=== PATIENT | male | born 1940 | race Caucasian/White ===

== ENCOUNTER → 2020-01-04 07:55 | Outpatient (CLI) | payer MEDICARE, BC, SELFPAY ==
--- NOTE | 2020-01-04 08:20 | DI.ECHO.S_ITS ---
Echocardiogram Report + + :Name: CARLITOS SYKES Study Date: 01/04/2020 Height: 74 in : :[facility] Weight: 215 lb : : Gender: Male BSA: 2.2 m2 : :: 1940 Age: 79 yrs BP: 122/80 mmHg: :Reason For Study: PALPITATIONS : : Performed By: Vic Blandon : :Referring: FIDELIA MONTIEL : + + Interpretation Summary The left ventricle is normal in size. The ejection fraction is estimated to be 60-65%. The right ventricle is normal in size and function. There is mild to moderate aortic regurgitation. There is mild mitral regurgitation. There is mild tricuspid regurgitation. The right ventricular systolic pressure is estimated to be at least 32 mmHg based on an estimated right atrial pressure of 8 mm Hg. There is aortic root sclerosis/calcification. Mild atherosclerotic plaque(s) in the aortic arch. Procedure: A two-dimensional transthoracic echocardiogram with color flow and Doppler was performed. The study quality was technically good. There is no prior echocardiogram noted for this patient. The patient was in normal sinus rhythm during the exam. The patient had frequent PACs during the exam. Left Ventricle: The left ventricle is normal in size. There is normal left ventricular wall thickness. There is no thrombus. The ejection fraction is estimated to be 60-65%. There are no focal wall motion abnormalities. Diastolic parameters suggest a relaxation abnormality of the left ventricle, consistent with probable normal filling pressures. Right Ventricle: The right ventricle is normal in size and function. Atria: The left atrium is mildly dilated. Right atrial size is normal. The interatrial septum is intact with no evidence for an atrial septal defect. Mitral Valve: There is mild mitral annular calcification. The mitral valve leaflets are mildly calcified. There is mild mitral regurgitation. Aortic Valve: The aortic valve is trileaflet. The aortic valve opens well. The aortic valve is slightly calcified. There is mild to moderate aortic regurgitation. Tricuspid Valve: The tricuspid valve is normal. The right ventricular systolic pressure is estimated to be at least 32 mmHg based on an estimated right atrial pressure of 8 mm Hg. There is mild tricuspid regurgitation. Pulmonic Valve: The pulmonic valve is not well seen, but is grossly normal. There is mild pulmonic regurgitation. Great Vessels: The aortic root is normal size. There is aortic root sclerosis/calcification. The dimensions of the ascending aorta are normal. Mild atherosclerotic plaque(s) in the aortic arch. The pulmonary artery is normal size. The IVC is dilated (diameter is greater than 2.1 cm) yet it collapses greater than 50% with a sniff. This suggests a right atrial pressure of 8 mm Hg. Pericardium/ Pleura There is no pericardial effusion. There is an anterior echo-free space consistent with a fat pad. There is no pleural effusion. MMode/2D Measurements & Calculations LVIDd: 5.2 cm LVOT diam: 2.3 cm LVIDs: 2.9 cm Ao root diam: 3.8 cm FS: 44.4 % asc Aorta Diam: 3.3 cm EPSS: 0.55 cm Ao Arch Diam (Prox Trans): 3.0 cm IVSd: 0.92 cm LVPWd: 0.93 cm LV oliver. diameter/BSA (cm/m^2): 2.3 LV sys. diameter/BSA (cm/m^2): 1.3 LA dimension: 3.9 cm RA long axis: 5.8 cm LA A2 area: 25.2 cm2 RA area: 20.1 cm2 LA A4 area: 23.2 cm2 RA vol: 59.4 ml LA length (vol): 6.0 cm RA : 26.5 ml/m2 LA vol: 82.8 ml IVC diam: 2.3 cm LA vol index: 37.0 ml/m2 RVD1 (basal): 4.8 cm RVD2 (mid): 4.2 cm TAPSE: 2.5 cm Doppler Measurements & Calculations Ao V2 max: 135.0 cm/sec LVOT Max Gunnar: 116.2 cm/sec Ao V2 mean: 98.4 cm/sec LV V1 max P.5 mmHg Ao max P.4 mmHg LV V1 VTI: 28.4 cm Ao mean P.3 mmHg NATA(I,D): 3.7 cm2 Ao V2 VTI: 31.8 cm NATA(V,D): 3.6 cm2 sev ratio: 0.90 NATA indexed to BSA (cm^2/m^2): 1.7 AI P1/2t: 845.9 msec AI dec slope: 147.7 cm/sec2 MV E max gunnar: 40.7 cm/sec TR max gunnar: 246.2 cm/sec MV A max gunnar: 46.6 cm/sec TR max P.3 mmHg MV E/A: 0.87 PA V2 max: 99.2 cm/sec Med Peak E' Gunnar: 4.6 cm/sec PA V2 mean: 76.0 cm/sec E/E' med: 8.8 PA mean P.5 mmHg Lat Peak E' Gunnar: 5.6 cm/sec PA pr(Accel): 21.2 mmHg E/E' lat: 7.3 E/e' average: 8.0 MV dec time: 0.20 sec SV(OT): 118.1 ml Reading Physician:06:08 PM
== END ==
PROVIDERS: Family Provider Family Medicine; PCP Family Medicine; Referring Provider Family Medicine; Visit Provider Family Medicine
DX: I08.3 Combined rheumatic disorders of mitral, aortic and tricuspid valves (principal); R00.2 Palpitations; I70.0 Atherosclerosis of aorta
CPT/HCPCS: 93306

== ENCOUNTER → 2020-01-20 12:47 | Outpatient (CLI) | payer MEDICARE, BC, SELFPAY ==
--- NOTE | 2020-02-10 16:53 | PM.CARDMON.1 ---
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 Patient also with rare supraventricular tachycardia, without any significant runs of any duration. Clinical correlation suggested
== END ==
PROVIDERS: Family Provider Family Medicine; PCP Family Medicine; Referring Provider Family Medicine; Visit Provider Family Medicine
DX: R00.2 Palpitations (principal)
CPT/HCPCS: 0296T; 0298T

== ENCOUNTER → 2021-02-19 13:01 | Outpatient (CLI) | payer MEDICARE, BC, SELFPAY ==
--- NOTE | 2021-02-19 | DI.RAD.S_ITS ---
PROCEDURE: XR CHEST 2V INDICATIONS: CHEST PAIN TECHNIQUE: 2 views of the chest were acquired. COMPARISON: None. FINDINGS: Surgical changes and devices: None. Lungs and pleura: Lungs are clear. No pleural effusions or pneumothorax. Mediastinum: Mediastinal contours are normal. Heart size is normal. Atherosclerotic vascular calcification noted in the aortic arch. Bones and chest wall: No suspicious bony abnormalities. Soft tissues appear unremarkable. IMPRESSION: No acute cardiopulmonary findings Approved by: Marek Kingsley M.D. on 02/19/2021 at 13:50
== END ==
PROVIDERS: Family Provider Family Medicine; PCP Family Medicine; Referring Provider Family Medicine; Visit Provider Family Medicine
DX: R07.9 Chest pain, unspecified (principal)
CPT/HCPCS: 71046

== ENCOUNTER → 2022-12-16 07:53 | Outpatient (CLI) | payer MEDICARE, SELFPAY ==
--- NOTE | 2022-12-16 | DI.ECHO.S_ITS ---
[place] +---------+ Hospital +---------+ : : [address] : : : : [id number] : : : : Phone: [phone]+ Echocardiogram Report + + :Name: CARLITOS SYKES Study Date: 12/16/2022 Height: 72 in : :[facility] ReadingLocation: Weight: 207 lb : : Gender: Male BSA: 2.2 m2 : :: 1940 Age: 82 yrs BP: 133/73 mmHg: :Reason For Study: Nonrheumatic Mitral Valve Insufficiency : :Ordering Physician: Darrin, : :[place] Performed By: Marta Thurman : :Referring: Brooklyn Clifford : + + Interpretation Summary The left ventricle is normal in size. Left ventricular systolic function appears normal without focal wall motion abnormalities. The ejection fraction is estimated to be 60-65%. LVEF has not changed since prior study. Diastolic parameters suggest a relaxation abnormality of the left ventricle, consistent with probable normal filling pressures. The right ventricle is mildly dilated. The right ventricular systolic function is normal. The left atrial size is normal. Right atrial size is normal. There is mild mitral regurgitation. MR has not changed. There is mild aortic regurgitation. AR has slightly decreased since prior study. There is no other significant valvular heart disease. The aortic root is normal size. Procedure: A two-dimensional transthoracic echocardiogram with color flow and Doppler was performed. The study quality was technically adequate. Comparison is made with the echocardiogram of 01/04/2020. The patient was in sinus bradycardia with heart rates between 50 bpm during the exam. Left Ventricle: The left ventricle is normal in size. Left ventricular wall thickness is mildly increased. Left ventricular systolic function appears normal without focal wall motion abnormalities. The ejection fraction is estimated to be 60-65%. Diastolic parameters suggest a relaxation abnormality of the left ventricle, consistent with probable normal filling pressures. Right Ventricle: The right ventricle is mildly dilated. The right ventricular systolic function is normal. Atria: The left atrial size is normal. Right atrial size is normal. There is no Doppler evidence for an interatrial shunt. Mitral Valve: The mitral valve is normal. There is no mitral valve stenosis. There is mild mitral regurgitation. Aortic Valve: The aortic valve is trileaflet. The aortic valve opens well. There is no aortic valve stenosis. There is mild aortic regurgitation. Tricuspid Valve: The tricuspid valve is normal. There is no tricuspid stenosis. There is trace tricuspid regurgitation. Pulmonic Valve: The pulmonic valve leaflets are thin and pliable; valve motion is normal. There is no pulmonic valvular stenosis. There is trace pulmonic regurgitation. There is no other significant valvular heart disease. Great Vessels: The aortic root is normal size. The ascending aorta is normal in size. The pulmonary artery is normal size. The IVC is of normal diameter and collapses greater than 50% with a sniff. This suggests a low right atrial pressure of 3 mm Hg. Pericardium/ Pleura There is no pericardial effusion. There is no pleural effusion. MMode/2D Measurements & Calculations LVIDd: 4.4 cm LVOT diam: 1.9 cm LVIDs: 2.8 cm Ao root diam: 3.8 cm FS: 36.4 % asc Aorta Diam: 3.5 cm IVSd: 1.4 cm LVPWd: 1.3 cm LV oliver. diameter/BSA (cm/m^2): 2.0 LV sys. diameter/BSA (cm/m^2): 1.3 LA A2 area: 15.0 cm2 RA long axis: 6.0 cm LA A4 area: 17.8 cm2 RA area: 16.9 cm2 LA length (vol): 5.0 cm RA vol: 40.7 ml LA vol: 45.1 ml RA : 18.8 ml/m2 LA vol index: 20.9 ml/m2 RVD1 (basal): 4.6 cm LVLs ap4: 6.1 cm LVLd ap2: 7.2 cm TAPSE_phl: 1.6 cm LVLs ap2: 6.0 cm Doppler Measurements & Calculations Ao V2 max: 121.0 cm/sec LVOT Max Gunnar: 82.5 cm/sec Ao V2 mean: 93.0 cm/sec LV V1 max P.7 mmHg Ao max P.0 mmHg LV V1 VTI: 18.8 cm Ao mean P.0 mmHg NATA(I,D): 1.8 cm2 Ao V2 VTI: 30.1 cm NATA(V,D): 1.9 cm2 sev ratio: 0.62 NATA indexed to BSA (cm^2/m^2): 0.82 AI P1/2t: 679.4 msec AI dec slope: 184.5 cm/sec2 MV E max gunnar: 42.2 cm/sec TR max gunnar: 224.0 cm/sec MV A max gunnar: 60.0 cm/sec TR max P.1 mmHg MV E/A: 0.70 PA V2 max: 109.0 cm/sec Med Peak E' Gunnar: 5.3 cm/sec PA V2 mean: 73.3 cm/sec E/E' med: 7.9 PA mean P.0 mmHg Lat Peak E' Gunnar: 5.5 cm/sec PA pr(Accel): 16.0 mmHg E/E' lat: 7.7 E/e' average: 7.8 MV dec time: 0.26 sec SV(LVOT): 53.3 ml AV P1/2t-pr_phl: 707.0 msec AV VR_phl: 0.68 NATA(VTI)/BSA_phl: 0.82 Reading Physician:06:19 PM
== END ==
PROVIDERS: Family Provider Family Medicine; PCP Family Medicine; Referring Provider Family Medicine; Visit Provider Family Medicine
DX: I08.0 Rheumatic disorders of both mitral and aortic valves (principal); I95.9 Hypotension, unspecified
CPT/HCPCS: 93306

== ENCOUNTER → 2023-02-12 09:41 | Outpatient (CLI) | payer MEDICARE, BC, SELFPAY ==
[2023-02-12 10:00] LABS: Hematocrit 46.1 % (41-53); Hemoglobin 15.9 g/dL (13.5-17.5)
[2023-02-12 10:40] LABS: BUN Creatinine Ratio 18.5 (6-22); Blood Urea Nitrogen 34 mg/dL (9-20); Calcium 9.7 mg/dL (8.4-10.2); Carbon Dioxide 31 mmol/L (22-32); Chloride 100 mmol/L (98-107); Estimated Glomerular Filt Rate 37 mL/min (>60); Glucose 84 mg/dL (80-110); HEMOLYSIS < 15 (0-50); Potassium 3.8 mmol/L (3.4-5.1); Sodium 140 mmol/L (137-145)
[2023-02-12 11:48] LABS: Creatinine Urine Random 103.7 mg/dL
[2023-02-12 11:53] LABS: Microalbumi Creatinin Ratio Ur 5.7 ug/mg CR (<30); Microalbumin Urine Random 0.6 mg/dL (0-1.6)
== END ==
PROVIDERS: Family Provider Family Medicine; PCP Family Medicine; Referring Provider Internal Medicine Nephrology; Visit Provider Internal Medicine Nephrology
DX: I10 Essential (primary) hypertension (principal); N18.31 Chronic kidney disease, stage 3a
CPT/HCPCS: 36415; 80048; 82043; 82570; 85014; 85018

== ENCOUNTER → 2023-03-14 16:30 | Outpatient (CLI) | payer MEDICARE, BC, SELFPAY ==
--- NOTE | 2023-03-14 16:32 | DI.RAD.S_ITS ---
PROCEDURE: XR CERVICAL SPINE 2V OR 3V INDICATIONS: Neck pain TECHNIQUE: 3 view(s) of the cervical spine were acquired. COMPARISON: None. FINDINGS: Bones: No fractures or dislocations to the T1 level. 2-3 mm anterolisthesis at C4-5 and C5-6 levels are seen. Mild degenerative endplate changes and bilateral facet hypertrophic changes are noted throughout cervical spine. The lateral masses of C1 appear intact on the odontoid view. No suspicious bony lesions. Soft tissues: No prevertebral soft tissue swelling. 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 No acute fracture or dislocation. Minimal anterolisthesis at C4-5 and C5-6 levels. Dictated by: Ge Arreola M.D. on 03/14/2023 at 17:07 Approved by: Ge Arreola M.D. on 03/14/2023 at 17:07
== END ==
PROVIDERS: Family Provider Family Medicine; PCP Family Medicine; Referring Provider Family Medicine; Visit Provider Family Medicine
DX: M50.30 Other cervical disc degeneration, unspecified cervical region (principal)
CPT/HCPCS: 72040

== ENCOUNTER → 2023-08-02 11:54 | Outpatient (CLI) | payer MEDICARE, BC, SELFPAY ==
[2023-08-02 12:31] LABS: Hematocrit 48.7 % (41-53); Hemoglobin 16.7 g/dL (13.5-17.5)
[2023-08-02 12:57] LABS: BUN Creatinine Ratio 20.4 (6-22); Blood Urea Nitrogen 34 mg/dL (9-20); Calcium 10.1 mg/dL (8.4-10.2); Carbon Dioxide 30 mmol/L (22-32); Chloride 101 mmol/L (98-107); Estimated Glomerular Filt Rate 41 mL/min (>60); Glucose 86 mg/dL (80-110); HEMOLYSIS < 15 (0-50); Potassium 3.8 mmol/L (3.4-5.1); Sodium 140 mmol/L (137-145)
== END ==
LOC: LAB 11:56
PROVIDERS: Family Provider Family Medicine; PCP Family Medicine; Referring Provider Internal Medicine Nephrology; Visit Provider Internal Medicine Nephrology
DX: I10 Essential (primary) hypertension (principal); N18.31 Chronic kidney disease, stage 3a
CPT/HCPCS: 36415; 80048; 85014; 85018

== ENCOUNTER 2023-09-03 14:25 | Emergency (ER) | payer MEDICARE, BC, SELFPAY ==
[2023-09-03 14:27] VITALS: BP 140/66; PULSE 62; RESP 18; TEMP 37; O2SAT 98; BMI 28.5
--- NOTE | 2023-09-03 14:32 | DI.RAD.S_ITS ---
PROCEDURE: XR HAND RT MIN 3V INDICATIONS: fall/hurt two middle fingers TECHNIQUE: 3 views of the hand(s) acquired. COMPARISON: None. FINDINGS: Bones: No fractures or dislocations. Carpal bones are normally aligned. No suspicious bony lesions. Soft tissues: No suspicious soft tissue calcifications. IMPRESSION: No acute fracture. No osseous lesion. If symptoms and/or clinical suspicion for pathology persist, further assessment with repeat, or advanced imaging (e.g., CT, MRI, or bone scan) may be helpful for further assessment. Dictated by: Lola Knight M.D. on 09/03/2023 at 14:50 Approved by: Loal Knight M.D. on 09/03/2023 at 14:50
--- NOTE | 2023-09-03 18:42 | ED.UPPEXIN ---
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 He immediately felt pain and looked at his hand and noted that the ends of the right 3rd and 4th fingers were visibly disfigured. He immediately grabbed the fingers and straightened them. He then came to the emergency room for assessment. He did not hit his head or have a loss of consciousness with the fall. Related Data Allergies Allergy/AdvReac Type Severity Reaction Status Date / Time No Known Drug Allergies Allergy Verified 09/03/23 14:27 Review of Systems <Brooklyn Altamirano PA-C - Last Filed: 09/03/23 18:46> Review of Systems ROS Unobtainable: All systems reviewed & are unremarkable except as noted in HPI and below Patient History <Brooklyn Altamirano PA-C - Last Filed: 09/03/23 18:46> Social History Smoking Status: Never smoker Smoking Status: Never smoker Substance Use Type: does not use Exam <Brooklyn Altamirano PA-C - Last Filed: 09/03/23 18:46> Narrative Exam Narrative: GENERAL: 83 year old patient appears stated age. Well-developed patient, in no acute distress. NEURO: AOx3. HEAD: Atraumatic. Normocephalic. EYES: Pupils equal round and reactive. Extraocular motions intact. No scleral icterus. No injection or drainage. ENT: Nose without bleeding or purulent drainage. Airway patent. RESPIRATORY: No distress. EXTREMITIES: Trace edema and trace tenderness over the right 3rd and 4th PIP joints. No visible deformity. Circulation and sensation intact. Patient able to make a fist and fully flex and extend the fingers. SKIN: No rash or erythema of visible areas Initial Vital Signs Initial Vital Signs: Vital Signs Temperature 98.6 F 09/03/23 14:27 Pulse Rate 62 09/03/23 14:27 Respiratory Rate 18 09/03/23 14:27 Blood Pressure 140/66 09/03/23 14:27 Pulse Oximetry 98 09/03/23 14:27 Oxygen Delivery Method Room Air 09/03/23 14:27 <Siria Rivera DO - Last Filed: 09/04/23 07:55> Initial Vital Signs Initial Vital Signs: Vital Signs Temperature 98.6 F 09/03/23 14:27 Pulse Rate 62 09/03/23 14:27 Respiratory Rate 18 09/03/23 14:27 Blood Pressure 140/66 09/03/23 14:27 Pulse Oximetry 98 09/03/23 14:27 Oxygen Delivery Method Room Air 09/03/23 14:27 Course <Brooklyn Altamirano PA-C - Last Filed: 09/03/23 18:46> Orders Ordered: ED Orders 09/03/23 14:32 XR hand RT min 3V Stat Vital Signs Vital signs: Vital Signs - 8 hr 09/03/23 14:27 Temperature 98.6 F Pulse Rate 62 Respiratory Rate 18 Blood Pressure 140/66 Pulse Oximetry 98 Oxygen Delivery Method Room Air <Siria Rivera DO - Last Filed: 09/04/23 07:55> Orders Ordered: ED Orders 09/03/23 14:32 XR hand RT min 3V Stat Vital Signs Vital signs: Vital Signs - 8 hr 09/03/23 14:27 Temperature 98.6 F Pulse Rate 62 Respiratory Rate 18 Blood Pressure 140/66 Pulse Oximetry 98 Oxygen Delivery Method Room Air MDM - Extremity Injury (Upper) <Brooklyn Altamirano PA-C - Last Filed: 09/03/23 18:46> Imaging Data Extremity x-ray #1: Radiologist's Impression: PROCEDURE: XR HAND RT MIN 3V INDICATIONS: fall/hurt two middle fingers TECHNIQUE: 3 views of the hand(s) acquired. COMPARISON: None. FINDINGS: Bones: No fractures or dislocations. Carpal bones are normally aligned. No suspicious bony lesions. Soft tissues: No suspicious soft tissue calcifications. IMPRESSION: No acute fracture. No osseous lesion. If symptoms and/or clinical suspicion for pathology persist, further assessment with repeat, or advanced imaging (e.g., CT, MRI, or bone scan) may be helpful for further assessment. Dictated by: Lola Knight M.D. on 09/03/2023 at 14:50 Approved by: Lola Knight M.D. on 09/03/2023 at 14:50 [facility] Narrative Medical decision making narrative: Multiple etiologies for patient's symptoms considered including, but not limited to: Dislocation, fracture Patient with fracture of the right 3rd and 4th distal phalanges at the DIP joint per history. X-ray does not show any acute bony abnormality and the fingers look to be in good alignment. He has good motion sensation and circulation on exam. Encouraged patient to continue using ice over the next 48 hours to decrease pain and swelling. Offered the option to dayana tape the fingers to provide support but patient declines. Patient's symptoms improved over duration of stay with above-stated therapies. Findings and discharge diagnosis discussed with patient/family followed by verbalization of understanding Return precautions discussed with patient/family whom verbalize understanding of diagnosis and plan Discharge Plan Departure Patient Disposition: Home Clinical Impression: Dislocation, fingers Qualifiers: Encounter type: initial encounter Qualified Code(s): S63.259A - Unspecified dislocation of unspecified finger, initial encounter Instructions: DI for Finger Dislocation Activity Restrictions/Additional Instructions: * good news! ! You fixed your problem! it sounds like you had 2 dislocated fingers which you appropriately relocated and there is no evidence of fracture or misalignment on your x-ray. You probably will be sore over the next several days and may noticed some swelling around those joints. You can continue to use ice and take NSAIDs or Tylenol for pain. Those joints maybe a little more loose than normal and are at a higher risk of dislocating again in the right side of circumstances, although I doubt this will happen to. *What to do: *Please continue to take your regular medications as directed. [ ] New medication prescriptions sent to your pharmacy: [ ] [ ] New medication written as a paper prescription [x] No new medications given *Please follow up with your primary care provider in 2-3 days, call for an appointment. Let them know you were seen in the Emergency Department and that we ask that you be seen in follow up. We will electronically transmit a record of today's note if your PCP is in our system *If you do not have a primary care provider please contact the [facility] Resource line at [phone]. They will ask some questions about your medical history and help get you set up with a doctor in the community. *Return to Emergency Department if you should have any new, worsening or concerning symptoms, such as [fever greater than 101 F, shaking chills, worsening pain, persistent vomiting or other concerning symptoms]. Referrals: Brooklyn Clifford MD [Primary Care Provider] - Stand Alone Forms: Patient Portal/API ED Sign-out <Siria Rivera DO - Last Filed: 09/04/23 07:55> Cosign ED Attending Cosignature Attestation: I was available for consultation.
== END 2023-09-03 16:04 | disposition home or self-care (01) ==
PROVIDERS: Emergency Provider Physician Assistant; Family Provider Family Medicine; PCP Family Medicine
DX: S63.252A Unspecified dislocation of right middle finger, initial encounter (principal); S63.254A Unspecified dislocation of right ring finger, initial encounter; W01.0XXA Fall on same level from slipping, tripping and stumbling without subsequent striking against object, initial encounter; Y93.89 Activity, other specified
CPT/HCPCS: 73130; 99283

== ENCOUNTER → 2023-12-19 09:33 | Outpatient (CLI) | payer MEDICARE, BC, SELFPAY ==
--- NOTE | 2023-12-19 09:36 | DI.RAD.S_ITS ---
PROCEDURE: XR HAND RT MIN 3V INDICATIONS: Pain in right hand TECHNIQUE: 3 views of the hand(s) acquired. COMPARISON: [facility], CR, XR HAND RT MIN 3V, 09/03/2023, 14:37. FINDINGS: Bones: No fractures or dislocations. Carpal bones are normally aligned. No suspicious bony lesions. Interphalangeal joint space narrowing with osteophytosis. Soft tissues: No suspicious soft tissue calcifications. IMPRESSION: Moderate interphalangeal osteoarthritis. Dictated by: Carlitos Edge M.D. on 12/19/2023 at 10:31 Approved by: Carlitos Edge M.D. on 12/19/2023 at 10:32
== END ==
PROVIDERS: Family Provider Family Medicine; PCP Family Medicine; Referring Provider Family Medicine; Visit Provider Family Medicine
DX: M19.041 Primary osteoarthritis, right hand (principal); M79.641 Pain in right hand
CPT/HCPCS: 73130

== ENCOUNTER 2023-12-22 14:00 | Emergency (ER) | payer MEDICARE, BC, SELFPAY ==
[2023-12-22 14:05] VITALS: BP 142/78; PULSE 60; RESP 16; TEMP 36.4; O2SAT 94; BMI 28.2
--- NOTE | 2023-12-22 14:13 | DI.RAD.S_ITS ---
PROCEDURE: XR SHOULDER LT MIN 2V INDICATIONS: fall/pain TECHNIQUE: Three views of the shoulder were acquired. COMPARISON: None. FINDINGS: Bones: There is an inferiorly displaced and impacted midshaft left clavicle fracture. No AC joint separation. There is overriding of fracture fragments by about 1.9 cm. No other fractures are seen. Soft tissues: No suspicious soft tissue calcifications. No left pneumothorax. Mild left basal atelectasis. IMPRESSION: Midshaft clavicle fracture with impaction and displacement. Left lung atelectasis. Dictated by: Brielle Walter M.D. on 12/22/2023 at 15:36 Approved by: Brielle Waltre M.D. on 12/22/2023 at 15:37
--- NOTE | 2023-12-22 14:14 | DI.RAD.S_ITS ---
PROCEDURE: XR RIBS LT MIN 3V W CXR1V INDICATIONS: fall/pain TECHNIQUE: Three 2 views of the ribs were acquired, along with a single view chest. COMPARISON: None. FINDINGS: Surgical changes and devices: None. Bones and chest wall: Midshaft left clavicle fracture. There is minor angulation of the lateral 8th and anterolateral 7th ribs. No displaced fractures. No subcutaneous emphysema. Lungs and pleura: No pleural effusions or pneumothorax. Minor left lateral lung base atelectasis. Mediastinum: Mediastinal contours appear normal. Heart size is normal. IMPRESSION: Possible nondisplaced left 7th and 8th rib fractures. Left midshaft clavicle fracture. No evidence of left pneumothorax. Minor left base atelectasis, presumed from splinting. Dictated by: Brielle Walter M.D. on 12/22/2023 at 15:38 Approved by: Brielle Walter M.D. on 12/22/2023 at 15:40
[2023-12-22] MEDS: OXYCODONE/ACETAMINOPHEN 5/325 TABLET 1 TAB PO (16:31)
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
== END 2023-12-22 16:38 | disposition home or self-care (01) ==
PROVIDERS: Emergency Provider Student in an Organized Health Care Education/Training Program; Family Provider Family Medicine; PCP Family Medicine
DX: S42.022A Displaced fracture of shaft of left clavicle, initial encounter for closed fracture (principal); S22.42XA Multiple fractures of ribs, left side, initial encounter for closed fracture; V18.0XXA Pedal cycle driver injured in noncollision transport accident in nontraffic accident, initial encounter
CPT/HCPCS: 71101; 73030; 99283

== ENCOUNTER → 2024-02-19 12:37 | Outpatient (CLI) | payer MEDICARE, BC, SELFPAY ==
[2024-02-19 14:09] LABS: Hematocrit 45.5 % (41-53); Hemoglobin 15.5 g/dL (13.5-17.5)
[2024-02-19 15:19] LABS: Albumin 4.3 g/dL (3.5-5.0); BUN Creatinine Ratio 20.1 (6-22); Blood Urea Nitrogen 34 mg/dL (9-20); Calcium 9.6 mg/dL (8.4-10.2); Carbon Dioxide 29 mmol/L (22-32); Chloride 104 mmol/L (98-107); Estimated Glomerular Filt Rate 40 mL/min (>60); Glucose 114 mg/dL (80-110); HEMOLYSIS < 15 (0-50); Potassium 3.9 mmol/L (3.4-5.1); Sodium 140 mmol/L (137-145)
[2024-02-19 15:45] LABS: Microalbumin Urine Random 0.8 mg/dL (0-1.6)
[2024-02-19 15:53] LABS: Creatinine Urine Random 131.19 mg/dL
== END ==
PROVIDERS: Family Provider Family Medicine; PCP Family Medicine; Referring Provider Internal Medicine Nephrology; Visit Provider Internal Medicine Nephrology
DX: I10 Essential (primary) hypertension (principal); N18.31 Chronic kidney disease, stage 3a; D64.9 Anemia, unspecified
CPT/HCPCS: 36415; 80048; 82040; 82043; 82570; 85014; 85018

== ENCOUNTER → 2024-04-08 12:25 | Outpatient (CLI) | payer MEDICARE, BC, SELFPAY ==
--- NOTE | 2024-04-08 12:27 | DI.ECHO.S_ITS ---
[facility]+ [facility] : : [address] : [place] : : [id number] : : Phone: [phone] Echocardiogram Report + + :Name: CARLITOS SYKES Study Date: 04/08/2024 Height: 72 in : :Hospital ReadingLocation: Weight: 208 lb : : Gender: Male BSA: 2.2 m2 : :: 1940 Age: 84 yrs BP: 132/78 mmHg: :Reason For Study: PALPITATIONS, TACHYCARDIA, PRIMARY : :HYPERTENSION : :Ordering Physician: TIANA, : :FIDELIA Performed By: Eulogio Petersen : :Referring: FIDELIA MONTIEL : + + Interpretation Summary The patient was in sinus bradycardia with heart rates between 47-55 bpm during the exam. The left ventricle is normal in size. The left ventricular ejection fraction is normal. The ejection fraction is estimated to be 60-65%. No significant change in LVEF from the previous study. The right ventricle is mildly dilated. The right ventricular systolic function is normal. Mild MR. No significant change. There is mild to moderate aortic regurgitation. Compared to the prior echo study, there has been an increase in the severity of aortic regurgitation. There is mild tricuspid regurgitation. Mild atherosclerotic plaque(s) in the aortic arch. Procedure: A two-dimensional transthoracic echocardiogram with color flow and Doppler was performed. The study quality was technically good. Comparison is made with the echocardiogram of 12/16/2022. The patient was in sinus bradycardia with heart rates between 47-55 bpm during the exam. Left Ventricle: The left ventricle is normal in size. There is normal left ventricular wall thickness. There is no thrombus. The ejection fraction is estimated to be 60-65%. The left ventricular ejection fraction is normal. There are no focal wall motion abnormalities. Diastolic parameters suggest a relaxation abnormality of the left ventricle, consistent with probable normal filling pressures. Right Ventricle: The right ventricle is mildly dilated. The right ventricular systolic function is normal. Atria: The left atrium is mildly dilated. The left atrium has mildly increased in size since the prior echo exam. The right atrium is mildly dilated. The interatrial septum grossly appears intact with no obvious evidence for an atrial septal defect. Mitral Valve: There is mild mitral annular calcification. There is mild mitral regurgitation. There has been no significant change since the previous study. Aortic Valve: The aortic valve is trileaflet. The aortic valve opens well. There is mild to moderate aortic regurgitation. Compared to the prior echo study, there has been an increase in the severity of aortic regurgitation. Tricuspid Valve: The tricuspid valve is normal. There is mild tricuspid regurgitation. Pulmonary artery pressures cannot be estimated because of the lack of a measurable TR jet velocity. Pulmonic Valve: The pulmonic valve is normal in structure and function. There is trace pulmonic regurgitation. Great Vessels: The aortic root is normal size. The dimensions of the ascending aorta are normal. Mild atherosclerotic plaque(s) in the aortic arch. The pulmonary artery is normal size. The inferior vena cava was not visualized. Pericardium/ Pleura There is no pericardial effusion. There is no pleural effusion. MMode/2D Measurements & Calculations LVIDd: 5.5 cm LVOT diam: 2.1 cm LVIDs: 3.5 cm Ao root diam: 3.8 cm FS: 35.6 % asc Aorta Diam: 3.4 cm EPSS: 0.63 cm Ao Arch Diam (Prox Trans): 2.7 cm IVSd: 0.96 cm LVPWd: 0.90 cm LV oliver. diameter/BSA (cm/m^2): 2.5 LV sys. diameter/BSA (cm/m^2): 1.6 LA A2 area: 21.6 cm2 RA long axis: 6.3 cm LA A4 area: 25.2 cm2 RA area: 18.5 cm2 LA length (vol): 5.8 cm RA vol: 46.3 ml LA vol: 79.0 ml RA : 21.4 ml/m2 LA vol index: 36.5 ml/m2 RVD1 (basal): 4.3 cm RVD2 (mid): 3.5 cm TAPSE: 2.4 cm Doppler Measurements & Calculations Ao V2 max: 123.2 cm/sec LVOT Max Gunnar: 87.6 cm/sec Ao V2 mean: 91.0 cm/sec LV V1 max P.1 mmHg Ao max P.1 mmHg LV V1 VTI: 23.6 cm Ao mean P.6 mmHg NATA(I,D): 3.0 cm2 Ao V2 VTI: 28.4 cm NATA(V,D): 2.5 cm2 sev ratio: 0.83 NATA indexed to BSA (cm^2/m^2): 1.4 AI P1/2t: 761.2 msec AI dec slope: 193.3 cm/sec2 MV E max gunnar: 44.3 cm/sec TR max gunnar: 262.0 cm/sec MV A max gunnar: 58.5 cm/sec TR max P.5 mmHg MV E/A: 0.76 PA V2 max: 75.5 cm/sec Med Peak E' Gunnar: 3.7 cm/sec PA V2 mean: 47.8 cm/sec E/E' med: 12.1 PA mean P.1 mmHg Lat Peak E' Gunnar: 5.8 cm/sec PA pr(Accel): 37.9 mmHg E/E' lat: 7.6 E/e' average: 9.9 MV dec time: 0.20 sec SV(LVOT): 83.8 ml Reading Physician:04:33 PM
== END ==
PROVIDERS: Family Provider Family Medicine; PCP Family Medicine; Referring Provider Family Medicine; Visit Provider Family Medicine
DX: R00.2 Palpitations (principal); R00.0 Tachycardia, unspecified; I10 Essential (primary) hypertension; I08.3 Combined rheumatic disorders of mitral, aortic and tricuspid valves
CPT/HCPCS: 93306

== ENCOUNTER 2024-06-06 15:39 | Day surgery (SDC) | payer MEDICARE, BC, SELFPAY ==
[2024-06-06] VITALS (17 sets, daily range): BP systolic 105–134; BP diastolic 47–74; PULSE 73–94; RESP 11–29; TEMP 36.5–37; O2SAT 78–98; BMI 28.7
--- NOTE | 2024-06-06 15:47 | DI.RAD.S_ITS ---
PROCEDURE: XR CHEST 1V INDICATIONS: chest pain TECHNIQUE: One view of the chest was acquired. COMPARISON: [facility], CR, XR CHEST 2V, 02/19/2021, 13:01. [facility], CR, XR CLAVICLE LEFT, 01/01/2024, 10:22. [facility], CR, XR CLAVICLE LEFT, 01/27/2024, 13:40. [facility], CR, XR CLAVICLE LEFT, 03/09/2024, 12:53. FINDINGS: Surgical changes and devices: None. Lungs and pleura: On this semiupright portable chest examination, no large pneumothorax or large pleural effusions are seen. No focal infiltrates are seen. Low lung volumes are noted. This causes a crowded appearance to the lung markings and limits evaluation. Mediastinum: The cardiac contours are within normal limits. The aorta demonstrates calcification and tortuosity. Bones and chest wall: No suspicious bony lesions. There is a healing left clavicle fracture. Age-appropriate bony degenerative changes are seen. Overlying soft tissues appear unremarkable. IMPRESSION: Low lung volumes, without an acute abnormality seen by plain film. Healing left clavicle fracture. Dictated by: Rock Craig M.D. on 06/06/2024 at 15:14 Approved by: Rock Craig M.D. on 06/06/2024 at 15:14
--- NOTE | 2024-06-06 15:56 | EKG_ITS ---
[facility] [address] [place] [address] Test Date: 2024-06-06 Pat Name: [facility] Department: [facility] Room: Gender: Male Captain Room Service: SABINA : 1940 Requested By: Order Number: [id number] Reading MD: Israel Main Measurements Intervals [place] Rate: 77 P: 27 SC: 144 QRS: 31 QRSD: 84 T: 18 QT: 372 QTc: 420 Interpretive Statements Normal sinus rhythm Nonspecific ST and T wave abnormality Electronically Signed On 06-07-2024 7:55:07 PST by Israel Main
[2024-06-06] MEDS: ASPIRIN 81 MG CHEW TAB 324 MG PO (16:07)
[2024-06-06 16:09] LABS: Add Manual Diff / Slide Review NO; Basophils Absolute Auto 0 /uL (0-100); Eosinophils Absolute Auto 0 /uL (0-450); Eosinophils Percent Auto 0.2 % (2-4); Hematocrit 50.6 % (41-53); Lymphocytes Absolute Auto 900 /uL (1100-4500); Lymphocytes Percent Auto 9.3 % (25-40); Mean Corpuscular HGB Conc 33.7 % (30-36); Mean Corpuscular Hemoglobin 31.9 PG (26-34); Mean Corpuscular Volume 94.8 fL (80-100); Monocytes Absolute Auto 100 /uL (0-900); Monocytes Percent Auto 0.6 % (3-14); Neutrophils Absolute Auto 9100 /uL (1500-7000); Neutrophils Percent Auto 89.9 % (50-75); Platelet Count 158 X10^3/uL (150-400); Red Blood Cell Count 5.33 X10^6/uL (4.5-5.9); Red Cell Distribution Width 13.3 % (11.6-14.8); White Blood Cell Count 10.1 X10^3/uL (4.5-11.0)
[2024-06-06 16:15] LABS: INR 1.1 (0.9-1.3); Prothrombin Time 12.9 SECONDS (9.4-12.5)
--- NOTE | 2024-06-06 16:15 | DI.CT.S_ITS ---
PROCEDURE: CT ABDOMEN PELVIS W CON INDICATIONS: acute abdominal pain with distention TECHNIQUE: After the administration of intravenous contrast, axial sections acquired from the lung bases to the pubic symphysis. Coronal and sagittal reformats were performed. For radiation dose reduction, the following was used: automated exposure control, adjustment of mA and/or kV according to patient size. COMPARISON: [facility], CR, XR CHEST 1V, 06/06/2024, 15:51. FINDINGS: Image quality: Diagnostic. Lower Chest: No significant findings. ABDOMEN: Liver: No solid mass. Gallbladder: No radiopaque gallstones or wall thickening. Biliary ducts: No biliary dilation. Pancreas: No ductal dilation. Spleen: Size is within normal limits. Adrenal Glands: No adrenal nodules. Kidneys and Ureters: No hydronephrosis. No solid mass. No complex renal cystic lesion which requires follow up. Stomach and Bowel: The stomach is moderately distended with fluid. There is mild wall thickening seen involving the duodenum. The more distal small bowel is unremarkable. No dilated loops of small bowel are seen. Normal colonic caliber, without significant wall thickening. Colonic diverticulosis is seen, without findings of active diverticulitis. A normal appendix is noted. Peritoneum: No abnormal intraperitoneal fluid. No free air. Ventral Wall: No significant ventral hernia. Abdominal Nodes: No retroperitoneal or mesenteric adenopathy by size criteria. Vessels: Aorta and inferior vena cava are normal in size. PELVIS: Pelvic Organs: Unremarkable. Bladder: No bladder wall thickening, accounting for underdistention. Pelvic Nodes: No enlarged lymph nodes. Miscellaneous: Bilateral fat containing inguinal hernias are seen. Bones: No aggressive osseous abnormality. Age-appropriate bony degenerative changes are seen. IMPRESSION: The stomach is moderately distended with fluid and there is wall thickening seen involving the proximal duodenum. The more distal small bowel is within normal limits. Additional findings: Diverticulosis, without active diverticulitis Normal appendix Bilateral fat containing inguinal hernias Dictated by: Rock Craig M.D. on 06/06/2024 at 16:08 Approved by: Rock Craig M.D. on 06/06/2024 at 16:11
--- NOTE | 2024-06-06 16:16 | PC.NURSE ---
Pt is c/o shortness of breath
[2024-06-06 16:17] LABS: PTT Partial Thromboplastin Tim 32 SECONDS (25.1-36.5)
[2024-06-06 16:19] LABS: Alanine Aminotransferase 241 IU/L (<50); Albumin 4.4 g/dL (3.5-5.0); Albumin Globulin Ratio 1.4 (1.0-2.8); Alkaline Phosphatase 128 U/L (38-126); Aspartate Aminotransferase 449 IU/L (17-59); BUN Creatinine Ratio 15.9 (6-22); Bilirubin Total 2.7 mg/dL (0.2-1.3); Blood Urea Nitrogen 30 mg/dL (9-20); Calcium 9.5 mg/dL (8.4-10.2); Carbon Dioxide 31 mmol/L (22-32); Chloride 101 mmol/L (98-107); Creatine Kinase 106 U/L (55-170); Estimated Glomerular Filt Rate 35 mL/min (>60); Globulin 3.1 g/dL (1.7-4.1); Glucose 152 mg/dL (80-110); Lipase 172 U/L (23-300); Magnesium 1.6 mg/dL (1.6-2.3); Potassium 3.7 mmol/L (3.4-5.1); Sodium 140 mmol/L (137-145); Total Protein 7.5 g/dL (6.3-8.2)
[2024-06-06] MEDS: ONDANSETRON 4 MG/2 ML INJ IV (16:21)
[2024-06-06] MEDS: HYDROMORPHONE 0.5 MG INJ IV (16:22)
[2024-06-06 16:28] LABS: HEMOLYSIS < 15 (0-50); NT-proBNP (BNP-Adult 18+) 287 pg/mL (<450)
[2024-06-06 16:29] LABS: Lactate (Lactic Acid) 2.4 mmol/L (0.7-2.1)
[2024-06-06 16:30] LABS: Troponin I < 0.012 ng/mL (0.01-0.034)
--- NOTE | 2024-06-06 17:44 | PC.NURSE ---
Patient was off oxygen for about 30 minutes. Patient oxygen saturation just reported at 88% on RA. Pt placed back on 2L via NC and comes up to 94% on 2L. Provider made aware.
[2024-06-06 17:58] LABS: Reflexed Lactate in 2 Hours Y
--- NOTE | 2024-06-06 18:09 | ED_ITS ---
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 No vomiting, he has had a bowel movement does not feel that he is particularly distended. Pain is increasing to the point that he is splinting causing oxygen desaturation. He reports no fevers or chills. No recent chest pain, palpitations, lower extremity edema. Related Data Allergies Allergy/AdvReac Type Severity Reaction Status Date / Time No Known Drug Allergies Allergy Verified 09/03/23 14:27 Review of Systems Review of Systems Narrative: Pertinent positive and negative findings as per HPI Patient History Medical History (Updated 06/06/24 @ 18:45 by Helen Lauren MD) Asthma Social History Smoking Status: Never smoker Smoking Status: Never smoker Substance Use Type: does not use Exam Initial Vital Signs Initial Vital Signs: Vital Signs Temperature 98.2 F 06/06/24 15:42 Pulse Rate 85 06/06/24 15:42 Respiratory Rate 22 06/06/24 15:42 Blood Pressure 112/60 06/06/24 15:42 Pulse Oximetry 97 06/06/24 15:42 Oxygen Delivery Method Room Air 06/06/24 15:42 General: Somewhat pale, no diaphoresis, appears quite uncomfortable complaining of bandlike abdominal pain but Able to give a complete and coherent history. Well-nourished well-developed HEENT: Moist mucous membranes, normal sclera with reactive pupils, Neck: No JVD, supple Respiratory: Lungs are clear to auscultation, no wheezing no rales no rhonchi. Full and symmetrical air movement Cardiac: Regular rate and rhythm no murmurs no bruits Abdomen: Distended, tympanitic, no rebound or guarding not particularly tender to palpation Skin: Slightly pale but otherwise Warm and dry, no rashes Neurologic: Grossly neurologically intact with no obvious asymmetries or abnormalities Extremities: No trauma, well perfused Psych: Cooperative, appropriate insight and affect Course Orders Ordered: ED Orders 06/06/24 15:47 XR chest 1V Stat EKG-12 Lead Stat 06/06/24 15:55 Complete Blood Count AUTO DIFF Stat Comprehensive Metabolic Panel Stat Lactate (Lactic Acid) Stat Lipase Stat Magnesium Stat NT-proBNP (BNP-Adult 18+) Stat PTT Partial Thromboplastin [place] Stat Prothrombin Time INR Stat Troponin & CK Cardiac Panel Stat 06/06/24 16:15 CT abdomen pelvis w con Stat Hydromorphone HCl (Hydromorphone 0.5 Mg Inj) 0.5 mg IV Q15MIN PRN PRN Reason: Pain, Last Admin: 06/06/24 16:22 Dose: 0.5 mg Documented By: LASHAE Discontinued Medications Albuterol (Albuterol 2.5 Mg/3 Ml Neb (Adult)) 2.5 mg INH NOW ONE Stop: 06/06/24 16:18 Aspirin (Aspirin 81 Mg Chew Tab) 324 mg PO NOW ONE Stop: 06/06/24 15:48 Last Admin: 06/06/24 16:07 Dose: 324 mg Documented By: LASHAE Ondansetron HCl (Ondansetron 4 Mg/2 Ml Inj) 4 mg IV NOW ONE Stop: 06/06/24 16:16 Last Admin: 06/06/24 16:21 Dose: 4 mg Documented By: LASHAE Vital Signs Vital signs: Vital Signs - 8 hr 06/06/24 15:42 06/06/24 15:51 06/06/24 16:06 Temperature 98.2 F Pulse Rate 85 86 74 Respiratory Rate 22 29 H 22 Blood Pressure 112/60 Pulse Oximetry 97 78 L 96 Oxygen Delivery Method Room Air Room Air Oxygen Flow Rate 06/06/24 16:06 06/06/24 16:26 06/06/24 16:30 Temperature Pulse Rate 94 H 77 Respiratory Rate 20 14 Blood Pressure 128/60 Pulse Oximetry 95 88 L Oxygen Delivery Method Room Air Oxygen Flow Rate 06/06/24 16:30 06/06/24 16:48 06/06/24 16:48 Temperature Pulse Rate 82 Respiratory Rate 18 Blood Pressure 116/54 L 134/60 Pulse Oximetry 98 Oxygen Delivery Method Nasal Cannula Oxygen Flow Rate 2 06/06/24 17:00 06/06/24 17:00 06/06/24 17:30 Temperature Pulse Rate 77 75 Respiratory Rate 25 H Blood Pressure 122/59 L Pulse Oximetry 93 91 Oxygen Delivery Method Room Air Room Air Oxygen Flow Rate 06/06/24 17:30 06/06/24 17:45 Temperature Pulse Rate Respiratory Rate 12 Blood Pressure 107/55 L Pulse Oximetry 94 Oxygen Delivery Method Nasal Cannula Oxygen Flow Rate 2 MDM - Chest Pain Lab Data 06/06/24 15:55 06/06/24 15:55 Labs: Lab Results 06/06/24 Range/Units 15:55 WBC 10.1 (4.5-11.0) X10^3/uL RBC 5.33 (4.5-5.9) X10^6/uL Hgb 17.0 (13.5-17.5) g/dL Hct 50.6 (41-53) % MCV 94.8 (80-100) fL MCH 31.9 (26-34) PG MCHC 33.7 (30-36) % RDW 13.3 (11.6-14.8) % Plt Count 158 (150-400) X10^3/uL Neut % (Auto) 89.9 H (50-75) % Lymph % (Auto) 9.3 L (25-40) % [place] % (Auto) 0.6 L (3-14) % Eos % (Auto) 0.2 L (2-4) % Baso % (Auto) 0.0 (0-2) % Neut # (Auto) 9100 H (7104-7333) /uL Lymph # (Auto) 900 L (3960-6493) /uL [place] # (Auto) 100 (0-900) /uL Eos # (Auto) 0 (0-450) /uL Baso # (Auto) 0 (0-100) /uL PT 12.9 H (9.4-12.5) SECONDS INR 1.1 (0.9-1.3) APTT 32 (25.1-36.5) SECONDS Sodium 140 (137-145) mmol/L Potassium 3.7 (3.4-5.1) mmol/L Chloride 101 (98-107) mmol/L Carbon Dioxide 31 (22-32) mmol/L BUN 30 H (9-20) mg/dL Creatinine 1.89 H (0.66-1.25) mg/dL Estimated GFR 35 L (>60) mL/min BUN/Creatinine Ratio 15.9 (6-22) Glucose 152 H (80-110) mg/dL Lactate 2.4 H (0.7-2.1) mmol/L Calcium 9.5 (8.4-10.2) mg/dL Magnesium 1.6 (1.6-2.3) mg/dL Total Bilirubin 2.7 H (0.2-1.3) mg/dL AST 449 H (17-59) IU/L ALT 241 H (<50) IU/L Alkaline Phosphatase 128 H (38-126) U/L Total Creatine Kinase 106 (55-170) U/L Troponin I < 0.012 (0.01-0.034) ng/mL NT-Pro-B Natriuret Pep 287 (<450) pg/mL Total Protein 7.5 (6.3-8.2) g/dL Albumin 4.4 (3.5-5.0) g/dL Globulin 3.1 (1.7-4.1) g/dL Albumin/Globulin Ratio 1.4 (1.0-2.8) Lipase 172 (23-300) U/L MDM Narrative Medical decision making narrative: CC: Acute shortness of breath right-sided chest and bandlike abdominal pain since noon today Complicating co-morbidities: History of asthma Data collected from: patient Differential considered: Bowel obstruction, pancreatitis, pancreatic mass, gallbladder disease, pneumothorax Exam documented above, pertinent findings include: Patient appears uncomfortable, splinting secondary to pain, distended abdomen without rebound or guarding Lab Test results independently reviewed as above. Pertinent findings: CBC is reassuring with white count at 10 no anemia normal platelets Chemistries are notable for chronic kidney disease with creatinine at 1.89 elevated lactate at 2.4, bilirubin of 2.7 AST of 449 ALT of 241 alk-phos of 128. Troponin is not elevated Lipase is normal Independently reviewed EKG: Sinus rhythm at a rate of [address] changes. Imaging studies independently reviewed: Chest x-ray is unremarkable no significant cardiomegaly, no pneumothorax CT of the abdomen and pelvis shows distended stomach with mild wall thickening seen involving the duodenum distal small bowel is unremarkable. Liver has no masses, there are no gallstones, no dilated biliary ducts no pancreatic abnormalities or pancreatic ductal dilatation Consultations: Dr Haas, surgery He is in the department at 6:45 p.m. to further evaluate the patient Treatments: [place] Re-evaluations: hypoxia noted. Likely a component of splinting due to pain and narcotics. Responding to 2 L NC oxygen. no wheeze Discussion: 84-year-old gentleman with acute onset bandlike abdominal pain starting at 12:30 p.m. today. After the pain started he did lunch. He relates this to some abdominal exercises that he did at the gym yesterday as he had similar symptoms 24 hours after same exercises back in March. Findings are notable for significantly distended stomach, some swelling in the duodenum, no obvious biliary pancreatic dilatation no obvious cholecystitis or stones in the gallbladder with notable bili AST ALT and alk-phos elevation. He has not having any fevers and does not appear to be having any type of acute cardiac etiology to explain his symptoms. Care is reviewed with the general surgeon. We will place an NG tube to see if we can decompress the stomach and the general surgeon will evaluate him in the emergency department with plan for upper endoscopy to see if he has a gastric outlet obstruction from food or other. Patient is aware of plans, questions are answered Discharge Plan Departure Patient Disposition: Admitted to Surgery Clinical Impression: Gastric outflow obstruction, Elevated LFTs Referrals: Brooklyn Clifford MD [Primary Care Provider] -
[2024-06-06 18:32] LABS: Lactate 2HR (Lactic Acid Rflx) 2.1 mmol/L (0.7-2.1)
[2024-06-06] MEDS: SODIUM CHLORIDE 0.9% 1,000 ML 1000 ML IV (18:34)
--- NOTE | 2024-06-06 18:41 | PC.NURSE ---
Pt declined to use offered portable O2 while he was ambulating to the bathroom.
--- NOTE | 2024-06-06 18:59 | PM.HP.1 ---
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 A CT scan was obtained which shows a distended stomach and potential thickening in the 1st portion of the duodenal. He has elevated liver function tests, but there is no other abnormality of the liver or gallbladder on the CT scan. He states that he ate a salad and soup for dinner last night. He states he is a fast eater. He does not have any dentures or partials, but he admits he may not choose food very well. He is noted progressive abdominal distention over the last month. He thinks he had a similar episode in March. He took Percocet at 2:20 this afternoon because of the pain. He was given Dilaudid in the ER, and had a temporary desaturation. He is comfortable now and not on oxygen. He says he has an asthmatic I do not feel hypoxic. He thinks it was not an accurate waveform. No previous abdominal surgeries. Hypertension on medication. Chronic renal disease. [facility] Medical History Asthma Social History Smoking Status: Never smoker Meds Home Medications and Allergies Allergies Allergy/AdvReac Type Severity Reaction Status Date / Time No Known Drug Allergies Allergy Verified 09/03/23 14:27 Review of Systems Review of Systems ROS: Yes All systems reviewed with the patient and are negative except as otherwise documented Constitutional Constitutional: Denies anorexia, Denies chills, Denies lethargy and Denies weight loss Eyes Eyes: Reports system reviewed and no additional complaints, except as documented ENT Ears, Nose, Mouth, and Throat: Yes system reviewed and no additional complaints, except as documented Cardiovascular Cardiovascular: Reports system reviewed and no additional complaints, except as documented Respiratory Respiratory: Reports system reviewed and no additional complaints, except as documented Gastrointestinal Gastrointestinal: Reports abdominal pain, Reports belching, Reports bloating, Reports nausea and Reports vomiting Genitourinary Genitourinary: Reports system reviewed and no additional complaints, except as documented Musculoskeletal Musculoskeletal: Reports system reviewed and no additional complaints, except as documented Integumentary/Breasts Skin/Breast: Reports system reviewed and no additional complaints, except as documented Neurologic Neurologic: Reports system reviewed and no additional complaints, except as documented Psychiatric Psychiatric: Reports system reviewed and no additional complaints, except as documented Endocrine Endocrine: Reports system reviewed and no additional complaints, except as documented Hematologic/Lymphatic Hematologic/Lymphatic: Reports system reviewed and no additional complaints, except as documented Allergic/Immunologic Allergic/Immunologic: Reports system reviewed and no additional complaints, except as documented Exam Vital Signs (past 8 hours): - 06/06/24 15:42 06/06/24 15:51 06/06/24 16:06 Temperature 98.2 F Pulse Rate 85 86 74 Respiratory Rate 22 29 H 22 Blood Pressure 112/60 Pulse Oximetry 97 78 L 96 Oxygen Delivery Method Room Air Room Air Oxygen Flow Rate 06/06/24 16:06 06/06/24 16:26 06/06/24 16:30 Temperature Pulse Rate 94 H 77 Respiratory Rate 20 14 Blood Pressure 128/60 Pulse Oximetry 95 88 L Oxygen Delivery Method Room Air Oxygen Flow Rate 06/06/24 16:30 06/06/24 16:48 06/06/24 16:48 Temperature Pulse Rate 82 Respiratory Rate 18 Blood Pressure 116/54 L 134/60 Pulse Oximetry 98 Oxygen Delivery Method Nasal Cannula Oxygen Flow Rate 2 06/06/24 17:00 06/06/24 17:00 06/06/24 17:30 Temperature Pulse Rate 77 75 Respiratory Rate 25 H Blood Pressure 122/59 L Pulse Oximetry 93 91 Oxygen Delivery Method Room Air Room Air Oxygen Flow Rate 06/06/24 17:30 06/06/24 17:45 06/06/24 18:00 Temperature Pulse Rate 73 Respiratory Rate 12 18 Blood Pressure 107/55 L Pulse Oximetry 94 95 Oxygen Delivery Method Nasal Cannula Oxygen Flow Rate 2 06/06/24 18:00 06/06/24 18:30 06/06/24 18:30 Temperature Pulse Rate 76 Respiratory Rate 19 Blood Pressure 110/58 L 110/60 Pulse Oximetry 96 Oxygen Delivery Method Room Air Oxygen Flow Rate Oxygen Delivery Method Room Air Oxygen Flow Rate 2 Narrative Exam Narrative: Gen: NAD, sitting comfortably in bed, appears well HEENT: Sclera are anicteric, head is normocephalic and atraumatic, trachea is midline. CV: RRR, no JVD Resp: clear to auscultation bilaterally, equal chest wall movement bilaterally Abd: Distended and tympanitic Ext: no edema, full range of motion Neuro: Cranial nerves II-XII grossly intact, no focal deficits Skin: No erythema or ecchymosis Objective Labs 06/06/24 15:55 06/06/24 15:55 Labs: Laboratory Results - last 24 hr 06/06/24 06/06/24 15:55 18:10 WBC 10.1 RBC 5.33 Hgb 17.0 Hct 50.6 MCV 94.8 MCH 31.9 MCHC 33.7 RDW 13.3 Plt Count 158 Neut % (Auto) 89.9 H Lymph % (Auto) 9.3 L [place] % (Auto) 0.6 L Eos % (Auto) 0.2 L Baso % (Auto) 0.0 Neut # (Auto) 9100 H Lymph # (Auto) 900 L [place] # (Auto) 100 Eos # (Auto) 0 Baso # (Auto) 0 PT 12.9 H INR 1.1 APTT 32 Sodium 140 Potassium 3.7 Chloride 101 Carbon Dioxide 31 BUN 30 H Creatinine 1.89 H Estimated GFR 35 L BUN/Creatinine Ratio 15.9 Glucose 152 H Lactate 2.4 H 2.1 Calcium 9.5 Magnesium 1.6 Total Bilirubin 2.7 H AST 449 H ALT 241 H Alkaline Phosphatase 128 H Total Creatine Kinase 106 Troponin I < 0.012 NT-Pro-B Natriuret Pep 287 Total Protein 7.5 Albumin 4.4 Globulin 3.1 Albumin/Globulin Ratio 1.4 Lipase 172 Assessment & Plan Assessment and plan (1) Gastric outflow obstruction: Status: Acute (2) Elevated LFTs: Status: Acute Assessment & Plan narrative: Patient will be decompressed with a nasogastric tube and then undergo EGD to see if this is a food impaction or an obstructing mass. CT scan independently reviewed by me does not show a large fungating mass that is obviously the cause of his obstruction. I do not see any surrounding edema or lymphadenopathy either. Risks of EGD including bleeding, perforation, aspiration, need for subsequent procedures, explained and patient agrees to proceed. The CT scan does not show an obvious cause for increased LFTs. The patient states he only drinks 1 glass of wine a week. He does not have any recent changes in medications. May need to continue pursuing this as an outpatient if we do not find an obvious cause on EGD. Time-Based Coding :: [TOTAL MINUTES] spent with patient and on the chart (including review of chart, obtaining history, exam, reviewing outside data, placing orders, documenting exam and treatment plan, and counseling patient) on [DATE]. PROFEE Charge Codes Initial inpatient/observation care: 31284 (modifier 25)
[2024-06-06] MEDS: LACTATED RINGERS 1,000 ML 42 ML IV (20:13)
--- NOTE | 2024-06-06 20:14 | PM.OP.EGD ---
Operative Date/Time/Diagnoses Date of procedure: 06/06/24 Time of procedure: 20:14 Pre-op diagnosis: Gastric outlet obstruction Post-op diagnosis: same (Food bolus impaction) Procedure & Clinicians Study performed: EGD with removal of food bolus Same procedure as scheduled: Yes Indications: Patient presented with abdominal distention and vomiting. CT scan was suspicious for thickening of the 1st portion of duodenal. Surgeon: Douglas Haas Procedure Notes SCOAP/Timeout: Performed Procedure in detail: Patient had a nasogastric tube placed in the ER. There is minimal output from the NG tube. Patient is brought to the endoscopy suite after consent was obtained. Time-out was performed. General anesthesia was induced. Bite block was placed. Gastroscope was inserted through the esophagus into the stomach and into the 2nd portion of the duodenum. There was no mass in the area of concern on the CT scan, rather there were raw onions and vegetables in a slimy slurry blocking the pylorus. Parnell net was used in 3 separate passes to remove the vegetables. GE junction is located at 40 cm with minimal hiatal hernia, normal Z-line. Mildly dilated esophagus without Cutler stricture. No biopsies were obtained. Endoscope was withdrawn. Findings: other findings (phytobezoar impaction) Specimen(s): none sent Complications: none Impression: phytobezoar Post-procedure Recommendations: Other recommendation(s) (follow-up with PCP) Plan for aftercare: Drink plenty of fluids. Follow-up with PCP for repeat LFTs and continued workup if still elevated. Follow up: weeks (with PCP in 1-2 weeks) Disposition: PACU
--- NOTE | 2024-06-06 20:19 | P.DS_ITS ---
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 A CT scan was obtained which shows a distended stomach and potential thickening in the 1st portion of the duodenal. He has elevated liver function tests, but there is no other abnormality of the liver or gallbladder on the CT scan. He states that he ate a salad and soup for dinner last night. He states he is a fast eater. He does not have any dentures or partials, but he admits he may not choose food very well. He is noted progressive abdominal distention over the last month. He thinks he had a similar episode in March. He took Percocet at 2:20 this afternoon because of the pain. He was given Dilaudid in the ER, and had a temporary desaturation. He is comfortable now and not on oxygen. He says he has an asthmatic I do not feel hypoxic. He thinks it was not an accurate waveform. No previous abdominal surgeries. Hypertension on medication. Chronic renal disease. Discharge Providers Provider Date of admission: 06/06/24 19:08 Discharge Date: 06/06/24 Primary care physician: Brooklyn Clifford MD Discharge provider: Douglas Haas MD Summary Hospital Course Discharge Diagnosis: Phytobezoar Status at Discharge Cognitive/behavioral status at discharge: oriented Time Spent with Patient Time spent: Less than 30 minutes Exam Vital Signs (past 8 hours): - 06/06/24 15:42 06/06/24 15:51 06/06/24 16:06 Temperature 98.2 F Pulse Rate 85 86 74 Respiratory Rate 22 29 H 22 Blood Pressure 112/60 Pulse Oximetry 97 78 L 96 Oxygen Delivery Method Room Air Room Air Oxygen Flow Rate 06/06/24 16:06 06/06/24 16:26 06/06/24 16:30 Temperature Pulse Rate 94 H 77 Respiratory Rate 20 14 Blood Pressure 128/60 Pulse Oximetry 95 88 L Oxygen Delivery Method Room Air Oxygen Flow Rate 06/06/24 16:30 06/06/24 16:48 06/06/24 16:48 Temperature Pulse Rate 82 Respiratory Rate 18 Blood Pressure 116/54 L 134/60 Pulse Oximetry 98 Oxygen Delivery Method Nasal Cannula Oxygen Flow Rate 2 06/06/24 17:00 06/06/24 17:00 06/06/24 17:30 Temperature Pulse Rate 77 75 Respiratory Rate 25 H Blood Pressure 122/59 L Pulse Oximetry 93 91 Oxygen Delivery Method Room Air Room Air Oxygen Flow Rate 06/06/24 17:30 06/06/24 17:45 06/06/24 18:00 Temperature Pulse Rate 73 Respiratory Rate 12 18 Blood Pressure 107/55 L Pulse Oximetry 94 95 Oxygen Delivery Method Nasal Cannula Oxygen Flow Rate 2 06/06/24 18:00 06/06/24 18:30 06/06/24 18:30 Temperature Pulse Rate 76 Respiratory Rate 19 Blood Pressure 110/58 L 110/60 Pulse Oximetry 96 Oxygen Delivery Method Room Air Oxygen Flow Rate 06/06/24 19:00 06/06/24 19:40 Temperature 98.6 F Pulse Rate 74 78 Respiratory Rate 12 16 Blood Pressure 125/74 Pulse Oximetry 93 96 Oxygen Delivery Method Room Air Room Air Oxygen Flow Rate Oxygen Delivery Method Room Air Oxygen Flow Rate 2 Objective Labs 06/06/24 15:55 06/06/24 15:55 Labs: Laboratory Results - last 24 hr 06/06/24 06/06/24 15:55 18:10 WBC 10.1 RBC 5.33 Hgb 17.0 Hct 50.6 MCV 94.8 MCH 31.9 MCHC 33.7 RDW 13.3 Plt Count 158 Neut % (Auto) 89.9 H Lymph % (Auto) 9.3 L [place] % (Auto) 0.6 L Eos % (Auto) 0.2 L Baso % (Auto) 0.0 Neut # (Auto) 9100 H Lymph # (Auto) 900 L [place] # (Auto) 100 Eos # (Auto) 0 Baso # (Auto) 0 PT 12.9 H INR 1.1 APTT 32 Sodium 140 Potassium 3.7 Chloride 101 Carbon Dioxide 31 BUN 30 H Creatinine 1.89 H Estimated GFR 35 L BUN/Creatinine Ratio 15.9 Glucose 152 H Lactate 2.4 H 2.1 Calcium 9.5 Magnesium 1.6 Total Bilirubin 2.7 H AST 449 H ALT 241 H Alkaline Phosphatase 128 H Total Creatine Kinase 106 Troponin I < 0.012 NT-Pro-B Natriuret Pep 287 Total Protein 7.5 Albumin 4.4 Globulin 3.1 Albumin/Globulin Ratio 1.4 Lipase 172 [facility] Medical History Asthma Social History household members: spouse Smoking Status: Never smoker Discharge Assessment & Plan Assessment and Plan Assessment: 1, Gastric outlet obstruction, phytobezoar 2, Elevated LFTs Plan of Treatment: 1. EGD did not show any mass 2. Repeat LFTs in 1-2 weeks Discharge Plan Discharge Plan Patient Disposition: Home Discharge orders & Medications Follow up/Referrals: Brooklyn Clifford MD [Primary Care Provider] - Diet/Activity/Treatments Diet: Diet as Tolerated Diet comment: finely chopped or pureed foods. Chew well. Drink plenty of liquids. Skin/Wound/Dressing Care Report to your healthcare provider any signs of infection, such as:: chills, fever, night sweats, increased pain, unusual drainage and unusual redness Visit Report/Discharge Packet Stand Alone Forms: Patient Portal/API, Stroke Signs & Symptoms Discharge Data Primary Care Provider: Brooklyn Clifford Attending Provider: Douglas Haas Admit Date/Time: 06/06/24 19:08
== END 2024-06-06 20:51 | disposition home or self-care (01) ==
LOC: ED 18:54 → AC 19:33 → ENDO 06-07 08:23
PROVIDERS: Emergency Provider Emergency Medicine; Family Provider Family Medicine; PCP Family Medicine; Referring Provider Emergency Medicine; Visit Provider Surgery
PROC: 0DJ08ZZ Inspection of Upper Intestinal Tract, Via Natural or Artificial Opening Endoscopic (ICD-10-PCS; CPT 43235; principal; 2024-06-06 20:00)
DX: K31.89 Other diseases of stomach and duodenum (principal); T18.2XXA Foreign body in stomach, initial encounter; R07.9 Chest pain, unspecified; J45.909 Unspecified asthma, uncomplicated; I12.9 Hypertensive chronic kidney disease with stage 1 through stage 4 chronic kidney disease, or unspecified chronic kidney disease; N18.9 Chronic kidney disease, unspecified
CPT/HCPCS: 43247; 36415; 71045; 74177; 80053; 82550; 83605; 83690; 83735; 83880; 84484; 85025; 85610; 85730; 93005; 94640; 96361; 96374; 96375; 99285; G0378; J0330; J1171; J2405; J2704; Q9967

== ENCOUNTER → 2024-06-17 14:52 | Outpatient (CLI) | payer MEDICARE, BC, SELFPAY ==
--- NOTE | 2024-06-17 14:55 | DI.RAD.S_ITS ---
PROCEDURE: XR CERVICAL SPINE 2V OR 3V INDICATIONS: NECK PAIN TECHNIQUE: 3 view(s) of the cervical spine were acquired. COMPARISON: [facility], CR, XR CERVICAL SPINE 2V OR 3V, 03/14/2023, 16:34. FINDINGS: Mild anterolisthesis of C3 on C4, C4 on C5 and C5 on C6. Lateral view is last visualized to the level of C6-7. Visualized vertebral body heights of the cervical spine is well maintained. Multilevel mild degenerative disease of the cervical spine, slightly progressed from prior exam. No prevertebral soft tissue edema. Moderate left cervical facet arthropathy. Open-mouth view is nondiagnostic. IMPRESSION: Mild degenerative disc disease of the cervical spine, slightly progressed from prior exam. Dictated by: Judy Estrada M.D. on 06/17/2024 at 15:31 Approved by: Judy Estrada M.D. on 06/17/2024 at 15:35
--- NOTE | 2024-06-17 14:55 | DI.RAD.S_ITS ---
PROCEDURE: XR THORACIC SPINE 3V INDICATIONS: NECK PAIN TECHNIQUE: 3 views of the thoracic spine were acquired. COMPARISON: None. FINDINGS: Cervical thoracic junction is not well visualized on the lateral view. Visualized vertebral body heights are well maintained. Multilevel, mild degenerative disease of thoracic spine, most pronounced at the midthoracic spine. IMPRESSION: Degenerative changes as described above. Dictated by: Judy Estrada M.D. on 06/17/2024 at 15:35 Approved by: Judy Estrada M.D. on 06/17/2024 at 15:37
== END ==
PROVIDERS: Family Provider Family Medicine; PCP Family Medicine; Referring Provider Family Medicine; Visit Provider Family Medicine
DX: M50.30 Other cervical disc degeneration, unspecified cervical region (principal); M47.812 Spondylosis without myelopathy or radiculopathy, cervical region; M47.814 Spondylosis without myelopathy or radiculopathy, thoracic region; M51.34 Other intervertebral disc degeneration, thoracic region
CPT/HCPCS: 72040; 72072

== ENCOUNTER → 2025-04-29 09:41 | Outpatient (CLI) | payer MEDICARE, OTHER, SELFPAY ==
--- NOTE | 2025-04-29 09:42 | DI.CT.S_ITS ---
PROCEDURE: CT CHEST WO CON INDICATIONS: shortness of breath TECHNIQUE: Noncontrast 5 mm thick sections acquired from the pulmonary apices to the posterior costophrenic angles. 1 mm lung window, 5 mm thick coronal and sagittal and 7 mm axial MIP reformats were then acquired. For radiation dose reduction, the following was used: automated exposure control, adjustment of mA and/or kV according to patient size. COMPARISON: [facility], CT, CT CHEST ABD PEL WO CON, 03/11/2025, 11:46. [facility], CR, XR CHEST 1V, 03/11/2025, 10:41. FINDINGS: Image quality: Diagnostic. Lower Neck: No enlarged lymph nodes. Thyroid: No thyroid nodules which require sonographic follow up, per consensus guidelines. Axillae: No enlarged lymph nodes. Chest Wall: Unremarkable. Bones: Healed left clavicle fracture with residual deformity.. Lungs and Pleura: No pneumothorax or pleural effusions. Mild linear scarring in the left upper lobe and lingula in the region of the previously seen consolidation, consistent with healing changes/scarring. Multiple scattered benign calcified granulomas. Heart: Heart size is normal. No pericardial effusion. [id number] coronary artery calcifications. Thoracic Vessels: The aorta and pulmonary arteries demonstrate normal size. Mediastinum and Jane: No enlarged lymph nodes. Esophagus: No wall thickening. No hiatal hernia. Upper Abdomen: Left renal cyst is partially included. Visualized upper abdomen solid organs and bowel loops appear normal. IMPRESSION: Previously seen left upper lobe and lingular consolidations have nearly completely resolved with residual linear scarring. Approved by: Oleg Roque M.D. on 04/29/2025 at 13:44
== END ==
LOC: CT 09:42
PROVIDERS: Family Provider Family Medicine; PCP Family Medicine; Referring Provider Family Medicine; Visit Provider Family Medicine
DX: J18.9 Pneumonia, unspecified organism (principal); J45.40 Moderate persistent asthma, uncomplicated; J98.4 Other disorders of lung
CPT/HCPCS: 71250